=== PATIENT | female | born 1960 | race Caucasian/White ===

== ENCOUNTER → 2016-06-22 | Day surgery (SDC) | payer OTHER | END | disposition home or self-care (01) | LOC: FAS 09:08 | DX: M23.251 Derangement of posterior horn of lateral meniscus due to old tear or injury, right knee (principal); M25.861 Other specified joint disorders, right knee; M79.7 Fibromyalgia; F32.9 Major depressive disorder, single episode, unspecified; Z90.710 Acquired absence of both cervix and uterus; Z90.89 Acquired absence of other organs; Z90.49 Acquired absence of other specified parts of digestive tract; Z79.818 Long term (current) use of other agents affecting estrogen receptors and estrogen levels; Z88.5 Allergy status to narcotic agent; Z79.899 Other long term (current) drug therapy | CPT/HCPCS: J1100; J2405; J2704; J3010 ==

== ENCOUNTER 2021-01-13 08:18 | Day surgery (SDC) | payer OTHER ==
[~2021-01-13] VITALS: Ht 163 cm; Wt 72.2 kg
[~2021-01-13 08:18] MED LIST: ADVIL200 M1 PO; ASPIR 8181 MG PO; AZITHROMYCIN250 MG PO; BACTRIM DS TAB1 EACH PO; CYCLOBENZAPRINE10 MG PO; DIFLUCAN150 MG PO; EFFEXOR XR75 MG PO; ESTRACE1 MG PO; MEDROL 4MG DOSEP4 MG PO; PERCOCET 5-3251 EACH PO; PYRIDIUM100 MG PO; VITAMIN D250 MCG PO
[2021-01-14 05:03] LABS: BASOPHIL 0.2 % (0-2); EOSINOPHIL 0.1 % (0-5); HCT 35.8 % (37.0-47.0); HGB 11.6 g/dl (12.5-16.0); LYMPHOCYTE 12.5 % (15-48); MCH 30.9 pg (25.0-31.0); MCHC 32.4 g/dL (32.0-36.0); MCV 95.2 fL (78.0-100.0); MONOCYTE 7.8 % (0-12); MPV 9.9 fL (6.0-9.5); NEUTROPHIL 78.9 % (41-80); NRBC 0; PLT 226 K/uL (150-400); RBC 3.76 M/uL (4.20-5.40); RDW 13.2 % (11.5-14.0); WBC 13.8 K/uL (4.0-10.5)
[2021-01-14 05:16] LABS: BUN/CREAT RATIO (CALC) 12.5 RATIO; CREATININE 0.64 mg/dL (0.51-0.95); POTASSIUM 4.1 mmol/L (3.5-5.1)
[2021-01-14] MEDS ORDERED: NORCO 5-325 TA1 EACH PO (09:10)
[2021-01-14] MEDS ORDERED: ASPIRIN81 MG PO (09:10)
[2021-01-14] MEDS ORDERED: FEOSOL325 MG PO (09:10)
[2021-01-14] MEDS ORDERED: DIFLUCAN150 MG PO (10:16)
[2021-01-14] MEDS ORDERED: ZOFRAN4 M1 PO (10:16)
--- NOTE | 2021-01-14 10:49 | NUR ---
PER PT. 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 FIRST APPT. IS 01/15/21 @ 3:00 P.M. 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 PT. SIGNED CHOICE FORM.
== END 2021-01-14 11:30 | disposition home or self-care (01) ==
LOC: FAS 08:18
PROVIDERS: Orthopaedic Surgery
DX: M17.11 Unilateral primary osteoarthritis, right knee (principal); F32.9 Major depressive disorder, single episode, unspecified; M79.7 Fibromyalgia; R11.0 Nausea; Z91.040 Latex allergy status; Z79.899 Other long term (current) drug therapy
CPT/HCPCS: 36415; 73560; 80048; 85025; 86850; 86900; 86901; 93005; 94010; 97110; 97162; 97165; 97530-GP; 97535; C1713; C1776; J0171; J0697; J1100; J1170; J1200; J1885; J2250; J2270; J2405; J2704; J2795; J3010; J7120

== ENCOUNTER 2021-06-12 08:11 | Emergency (ER) | payer OTHER ==
[~2021-06-12 08:11] MED LIST changes: +ASPIRIN81 MG PO; +FEOSOL325 MG PO; +NORCO 5-325 TA1 EACH PO; +ZOFRAN4 M1 PO
[2021-06-12] MEDS ORDERED: FLEXERIL5 MG PO (09:51)
[2021-06-12] MEDS ORDERED: NAPROXEN500 MG PO (09:51)
== END 2021-06-12 10:16 | disposition home or self-care (01) ==
LOC: FER 08:11
DX: S16.1XXA Strain of muscle, fascia and tendon at neck level, initial encounter (principal); M50.322 Other cervical disc degeneration at C5-C6 level; M48.02 Spinal stenosis, cervical region; Z91.040 Latex allergy status; V43.52XA Car driver injured in collision with other type car in traffic accident, initial encounter; Y93.89 Activity, other specified
CPT/HCPCS: 72125; J1885